=== PATIENT | female | born 1970 | race Two or more races ===

== ENCOUNTER 2016-08-22 17:36 | Observation (INO) | payer BC ==
[2016-08-22] MEDS ORDERED: ASPIRIN 81 MG CHEW PO STA (18:43)
[2016-08-22] MEDS ORDERED: NITROGLYCERIN OINT 1 INCH/GM PACKET TOPICAL STA (18:43)
--- NOTE | 2016-08-22 18:46 | ED ---
General Adult HPI - General Source: patient, EMS, RN notes reviewed Mode of arrival: EMS Limitations: no limitations <Larry Chang - Last Filed: 08/22/16 18:58> <Amandeep Rivers - Last Filed: 08/22/16 20:39> - General Chief complaint: Chest Pain Stated complaint: chest pain Time Seen by Provider: 08/22/16 18:10 - History of Present Illness Initial comments: Patient is a pleasant 46-year-old female presenting to the emergency department complaining of chest discomfort. Onset of symptoms was around 4 or 4:30. Symptoms lasted around 25 minutes. Patient was driving. Patient had pressure with radiation to the jaw and back. Patient is currently symptom-free. Patient did have some associated diaphoresis and nausea. No dyspnea. No history of similar symptoms previously. (Larry Chang) - Related Data Home Medications Medication Instructions Recorded Confirmed Ascorbic Acid [Vitamin C] 500 mg PO DAILY 08/22/16 08/22/16 Cyanocobalamin [Vitamin B-12] 500 mcg PO DAILY 08/22/16 08/22/16 Fluticasone/Vilanterol [Breo 1 puff INHALATION RT-DAILY 08/22/16 08/22/16 Ellipta 100-25 Mcg Inhaler] Multivitamins, Thera [Multivitamin 1 tab PO DAILY 08/22/16 08/22/16 (formulary)] Allergies Allergy/AdvReac Type Severity Reaction Status Date / Time No Known Allergies Allergy Verified 08/22/16 18:17 Review of Systems ROS Other: All systems not noted in ROS Statement are negative. Constitutional: Denies: fever Eyes: Denies: eye pain ENT: Denies: ear pain Respiratory: Denies: cough, dyspnea Cardiovascular: Reports: chest pain Endocrine: Denies: fatigue Gastrointestinal: Denies: abdominal pain Genitourinary: Denies: dysuria Musculoskeletal: Denies: arthralgia Skin: Denies: rash Neurological: Denies: weakness <Larry Chang - Last Filed: 08/22/16 18:58> ROS Other: All systems not noted in ROS Statement are negative. <Amandeep Rivers - Last Filed: 08/22/16 20:39> ROS Statement: Those systems with pertinent positive or pertinent negative responses have been documented in the HPI. Past Medical History Past Medical History: Hyperlipidemia History of Any Multi-Drug Resistant Organisms: None Reported Past Surgical History: Cholecystectomy, Tonsillectomy, Tubal Ligation Past Psychological History: No Psychological Hx Reported Smoking Status: Current every day smoker Past Alcohol Use History: Occasional Past Drug Use History: None Reported <Larry Chang - Last Filed: 08/22/16 18:58> General Exam Limitations: no limitations General appearance: alert, in no apparent distress Head exam: Present: atraumatic Eye exam: Present: normal appearance, PERRL ENT exam: Present: normal oropharynx Neck exam: Present: normal inspection Respiratory exam: Present: normal lung sounds bilaterally. Absent: chest wall tenderness Cardiovascular Exam: Present: regular rate, normal rhythm Expanded Peripheral pulses: 2+: Radial (R), Radial (L), Posterior Tibialis (R), Posterior Tibialis (L) GI/Abdominal exam: Present: soft. Absent: tenderness Extremities exam: Present: normal inspection. Absent: pedal edema, calf tenderness Neurological exam: Present: alert Psychiatric exam: Present: normal affect, normal mood Skin exam: Absent: rash <Larry Chang - Last Filed: 08/22/16 18:58> EKG Findings - EKG Comments: EKG Findings:: Normal sinus rhythm at 82. Normal intervals. Normal axis. Normal QRS. Normal ST-T. <Larry Chang - Last Filed: 08/22/16 18:58> Medical Decision Making - Lab Data Result diagrams: 08/22/16 17:48 <Larry Chang - Last Filed: 08/22/16 18:58> - Lab Data Result diagrams: 08/22/16 17:48 08/22/16 17:48 <Amandeep Rivers - Last Filed: 08/22/16 20:39> - Medical Decision Making Case endorsed to Dr. Whitney pending lab and x-ray results. Case was discussed with practitioner Leon, covering with Dr. Zamora, covering for Dr. gamino who admits for Dr. Gandhi. She will admit if deemed necessary. (Larry Chang) I received this patient as a sign out pending the lab studies. I went and reviewed the patient, including history, physical and studies. The patient remains symptom-free. I discussed results with the patient and wrote the admission orders. (Amandeep Rivers) - Lab Data Lab Results 03/31/17 03/31/17 03/31/17 Range/Units 17:48 17:48 17:48 WBC 11.4 H (3.8-10.6) k/uL RBC 4.69 (3.80-5.40) m/uL Hgb 14.2 (11.4-16.0) gm/dL Hct 43.2 (34.0-46.0) % MCV 92.1 (80.0-100.0) fL MCH 30.2 (25.0-35.0) pg MCHC 32.8 (31.0-37.0) g/dL RDW 13.4 (11.5-15.5) % Plt Count 286 (150-450) k/uL Neutrophils % 57 % Lymphocytes % 32 % Monocytes % 4 % Eosinophils % 4 % Basophils % 1 % Neutrophils # 6.5 (1.3-7.7) k/uL Lymphocytes # 3.6 (1.0-4.8) k/uL Monocytes # 0.5 (0-1.0) k/uL Eosinophils # 0.4 (0-0.7) k/uL Basophils # 0.1 (0-0.2) k/uL PT 10.3 (9.0-12.0) sec INR 1.0 (<1.1) APTT 27.3 (22.0-30.0) sec D-Dimer 0.27 (<0.60) mg/L FEU Sodium (137-145) mmol/L Potassium (3.5-5.1) mmol/L Chloride (98-107) mmol/L Carbon Dioxide (22-30) mmol/L Anion Gap mmol/L BUN (7-17) mg/dL Creatinine (0.52-1.04) mg/dL Est GFR (MDRD) Af Amer (>60 ml/min/1.73 sqM) Est GFR (MDRD) Non-Af (>60 ml/min/1.73 sqM) Glucose (74-99) mg/dL Calcium (8.4-10.2) mg/dL Magnesium (1.6-2.3) mg/dL Total Bilirubin (0.2-1.3) mg/dL AST (14-36) U/L ALT (9-52) U/L Alkaline Phosphatase (38-126) U/L Total Creatine Kinase 49 (30-135) U/L CK-MB (CK-2) <0.2 (0.0-2.4) ng/mL CK-MB (CK-2) Rel Index Troponin I <0.012 (0.000-0.034) ng/mL Total Protein (6.3-8.2) g/dL Albumin (3.5-5.0) g/dL 08/22/16 Range/Units 17:48 WBC (3.8-10.6) k/uL RBC (3.80-5.40) m/uL Hgb (11.4-16.0) gm/dL Hct (34.0-46.0) % MCV (80.0-100.0) fL MCH (25.0-35.0) pg MCHC (31.0-37.0) g/dL RDW (11.5-15.5) % Plt Count (150-450) k/uL Neutrophils % % Lymphocytes % % Monocytes % % Eosinophils % % Basophils % % Neutrophils # (1.3-7.7) k/uL Lymphocytes # (1.0-4.8) k/uL Monocytes # (0-1.0) k/uL Eosinophils # (0-0.7) k/uL Basophils # (0-0.2) k/uL PT (9.0-12.0) sec INR (<1.1) APTT (22.0-30.0) sec D-Dimer (<0.60) mg/L FEU Sodium 141 (137-145) mmol/L Potassium 4.3 (3.5-5.1) mmol/L Chloride 105 (98-107) mmol/L Carbon Dioxide 25 (22-30) mmol/L Anion Gap 11 mmol/L BUN 16 (7-17) mg/dL Creatinine 0.60 (0.52-1.04) mg/dL Est GFR (MDRD) Af Amer >60 (>60 ml/min/1.73 sqM) Est GFR (MDRD) Non-Af >60 (>60 ml/min/1.73 sqM) Glucose 99 (74-99) mg/dL Calcium 9.8 (8.4-10.2) mg/dL Magnesium 1.9 (1.6-2.3) mg/dL Total Bilirubin 0.6 (0.2-1.3) mg/dL AST 24 (14-36) U/L ALT 27 (9-52) U/L Alkaline Phosphatase 103 (38-126) U/L Total Creatine Kinase (30-135) U/L CK-MB (CK-2) (0.0-2.4) ng/mL CK-MB (CK-2) Rel Index Troponin I (0.000-0.034) ng/mL Total Protein 7.9 (6.3-8.2) g/dL Albumin 4.6 (3.5-5.0) g/dL Disposition <Larry Chang - Last Filed: 08/22/16 18:58> <Amandeep Rivers - Last Filed: 08/22/16 20:39> Clinical Impression: Chest pain Disposition: ADMITTED IP TO THIS HOSP Condition: Good Referrals: Marvin Gandhi DO [Primary Care Provider] - 1-2 days
[2016-08-22 18:55] LABS: Basophils # (A) 0.1 k/uL (0-0.2); Basophils % (A) 1 %; CH 30.4; CHCM 33.2; Eosinophils # (A) 0.4 k/uL (0-0.7); Eosinophils % (A) 4 %; HCT 43.2 % (34.0-46.0); HDW 2.38; HGB 14.2 gm/dL (11.4-16.0); Luc # (Auto) 0.33; Luc % (Auto) 3; Lymphocytes # (A) 3.6 k/uL (1.0-4.8); Lymphocytes % (A) 32 %; MCH 30.2 pg (25.0-35.0); MCHC 32.8 g/dL (31.0-37.0); MCV 92.1 fL (80.0-100.0); Mean Platelet Volume 8.1; Monocytes # (A) 0.5 k/uL (0-1.0); Monocytes % (A) 4 %; Neutrophils # (A) 6.5 k/uL (1.3-7.7); Neutrophils % (A) 57 %; RBC 4.69 m/uL (3.80-5.40); RDW 13.4 % (11.5-15.5); WBC 11.4 k/uL (3.8-10.6); WBC (Perox) 11.54
[2016-08-22 19:03] LABS: ALT 27 U/L (9-52); AST 24 U/L (14-36); Alkaline Phosphatase 103 U/L (38-126); Anion Gap 11 mmol/L; Blood Urea Nitrogen 16 mg/dL (7-17); Calcium 9.8 mg/dL (8.4-10.2); Carbon Dioxide 25 mmol/L (22-30); Chloride 105 mmol/L (98-107); Glucose 99 mg/dL (74-99); Magnesium 1.9 mg/dL (1.6-2.3); Non-African American GFR(MDRD) >60 (>60 ml/min/1.73 sqM); Potassium 4.3 mmol/L (3.5-5.1); Sodium 141 mmol/L (137-145); Total Bilirubin 0.6 mg/dL (0.2-1.3); Total Protein 7.9 g/dL (6.3-8.2)
[2016-08-22 19:10] LABS: Partial Thromboplastin Time 27.3 sec (22.0-30.0); Prothrombin Time 10.3 sec (9.0-12.0)
[2016-08-22 19:18] LABS: Creatine Kinase 49 U/L (30-135)
[2016-08-22 19:31] LABS: Creatine Kinase MB <0.2 ng/mL (0.0-2.4); Troponin I <0.012 ng/mL (0.000-0.034)
--- NOTE | 2016-08-22 19:43 | XR ---
EXAMINATION TYPE: XR chest 2V DATE OF EXAM: 08/22/2016 7:11 PM COMPARISON: NONE HISTORY: Pain with nausea TECHNIQUE: Frontal and lateral views of the chest are obtained. FINDINGS: There is no focal air space opacity, pleural effusion, or pneumothorax seen. The cardiac silhouette size is within normal limits. The osseous structures are intact. IMPRESSION: No acute cardiopulmonary process.
[2016-08-22] MEDS ORDERED: NITROGLYCERIN SL TABS 0.4 MG TAB SUBLINGUAL PRN (20:35)
[2016-08-22 21:25] VITALS: RESP 18
[2016-08-22 21:33] VITALS: BMI 26.6
[2016-08-22] MEDS ORDERED: INFLUENZA VACCINE (3YR+) 60 MCG/0.5 ML SYRINGE IM ONE (21:53)
[2016-08-23 00:53] LABS: Creatine Kinase 39 U/L (30-135)
[2016-08-23 01:06] LABS: Creatine Kinase MB <0.2 ng/mL (0.0-2.4); Troponin I <0.012 ng/mL (0.000-0.034)
[2016-08-23] MEDS: ACETAMINOPHEN TAB 325 MG TAB PO PRN ×2 (04:05→15:56)
[2016-08-23 05:49] LABS: Cholesterol 277 mg/dL (<200); HDL Cholesterol 41 mg/dL (40-60); Triglycerides 276 mg/dL (<150)
[2016-08-23 05:53] LABS: Creatine Kinase 47 U/L (30-135)
[2016-08-23 06:05] LABS: Creatine Kinase MB <0.2 ng/mL (0.0-2.4); Troponin I <0.012 ng/mL (0.000-0.034)
[2016-08-23] MEDS ORDERED: ATORVASTATIN 40 MG TAB PO SCH (09:00)
[2016-08-23] MEDS ORDERED: ASPIRIN 325 MG TAB PO SCH (09:00)
--- NOTE | 2016-08-23 09:30 | CONS ---
DATE OF CONSULTATION: Mrs. Moody is a 46-year-old female with known history of chronic tobacco use and a history of hyperlipidemia who presented with symptoms of chest discomfort. 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 She felt short of breath and diaphoretic with it. At time of my evaluation, she is pain free. Patient is not very active physically. Denies any exertional chest pain. Denies any prior history of cardiac disease. She has some dyspnea on exertion and cough related to her smoking. She has no PND or orthopnea. No peripheral edema. No dizziness. No syncope and no arrhythmia. Her coronary risk factors are remarkable for the chronic tobacco use about a pack a day. The hyperlipidemia is ( ) treated. She is nondiabetic. No hypertension. Her medications at home including Breo Ellipta, vitamin C, vitamin B and multivitamin. REVIEW OF SYSTEMS: RESPIRATORY SYSTEM: She has cough, dyspnea on exertion and early COPD according to her. GI SYSTEM: No recent GI bleed. No peptic ulcer disease. SYSTEM: No dysuria or hematuria. NERVOUS SYSTEM: No stroke or seizure. PHYSICAL EXAMINATION: A 46-year-old female, alert, oriented in no apparent distress. blood pressure 115/60 with the heart rate in the 80s. HEAD: Normocephalic. EYES: Sclerae nonicteric. NECK: Good carotid upstroke. No bruit. No jugular venous distention. LUNGS: Clear to auscultation. HEART: Regular rate and rhythm, S1, S2, no S3, no rub. ABDOMEN: Soft, nontender. Positive bowel sounds. No organomegaly. EXTREMITIES: No edema. Intact distal pulses. EKG revealed sinus mechanism, normal axis and interval with no acute changes. Chest x-ray revealed no acute infiltrate. IMPRESSION: 1. Chest discomfort of unclear etiology. Has some atypical feature for ischemic heart disease in a patient with history of chronic tobacco use and hyperlipidemia. 2. Chronic tobacco use. 3. Hyperlipidemia, untreated. RECOMMENDATIONS: Her lab data has revealed a troponin of less than 0.012 for 3 samples. Her cholesterol is 277 with an LDL of 181. I will initiate treatment with a statin. I will obtain an echocardiogram with Doppler. If there is no evidence of segmental wall motion abnormality then the patient should be able to be discharged home today and followed as an outpatient to undergo a stress echocardiogram . Thank you for this consult. We will follow with you.
[2016-08-23 16:40] VITALS: BP 112/60; PULSE 85; TEMP 97.8
--- NOTE | 2016-08-23 17:35 | P.HPIM ---
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 Patient stated that this is a first and symptoms of her chest pain. Pain was pressure-like and description radiation was described above no alleviating or exacerbating factors. Patient states that the pain lasts less than hour and was self-limiting. Emergency room EKG did not reveal ST-T wave changes. Chest x-ray was also negative. Cardiac enzymes 3 were negative. Patient has having any PND, orthopnea, headaches, blurry vision, chest pain, difficulty breathing, nausea, vomiting, urinary urgency or frequency, change in bowel habits. At the time of my evaluation patient is symptom-free. Review of Systems All systems: negative (Noted in HPI) Past Medical History Past Medical History: Asthma, COPD, Hyperlipidemia, Pneumonia Additional Past Medical History / Comment(s): Bronchitis History of Any Multi-Drug Resistant Organisms: None Reported Past Surgical History: Cholecystectomy, Tonsillectomy, Tubal Ligation Past Anesthesia/Blood Transfusion Reactions: No Reported Reaction Past Psychological History: No Psychological Hx Reported Smoking Status: Current every day smoker Past Alcohol Use History: Occasional Past Drug Use History: None Reported - Past Family History Father Family Medical History: Hypertension Mother Family Medical History: Cancer Additional Family Medical History / Comment(s): Lung Medications and Allergies Home Medications Medication Instructions Recorded Confirmed Type Ascorbic Acid [Vitamin C] 500 mg PO DAILY 08/22/16 08/22/16 History Cyanocobalamin [Vitamin B-12] 500 mcg PO DAILY 08/22/16 08/22/16 History Fluticasone/Vilanterol [Breo 1 puff INHALATION RT-DAILY 08/22/16 08/22/16 History Ellipta 100-25 Mcg Inhaler] Multivitamins, Thera [Multivitamin 1 tab PO DAILY 08/22/16 08/22/16 History (formulary)] Allergies Allergy/AdvReac Type Severity Reaction Status Date / Time No Known Allergies Allergy Verified 08/22/16 21:22 Physical Exam Vitals: Vital Signs Temp Pulse Resp BP BP Pulse Ox 08/23/16 16:00 97.8 F 85 18 112/60 94 L 08/23/16 11:45 97.9 F 67 18 114/61 93 L 08/23/16 07:47 97.9 F 86 18 115/62 93 L 08/23/16 04:00 84 18 08/23/16 03:50 98.1 F 84 18 134/67 97 08/22/16 23:48 84 18 118/74 95 08/22/16 23:02 88 18 08/22/16 21:48 18 08/22/16 21:25 97.6 F 82 18 142/76 97 Intake and Output 08/23/16 08/23/16 08/23/16 06:59 14:59 22:59 Intake Total 100 420 Balance 100 420 Intake: Oral 100 420 Other: Voiding Method Toilet # Voids 2 Physical exam Gen. appearance oriented 3 in no distress Neck is supple no JVD Lungs good air entry clear to auscultation no rhonchi or wheezing Heart S1-S2 heard regular rate and rhythm no murmurs appreciated Abdomen is soft nontender no organomegaly bowel sounds are intact Neurologically cranial nerves II-12 grossly intact no focal motor or sensory deficits noted Skin no abnormalities appreciated Results CBC & Chem 7: 08/22/16 17:48 08/22/16 17:48 Labs: Abnormal Lab Results - Last 24 Hours (Table) 08/23/16 Range/Units 05:22 Triglycerides 276 H (<150) mg/dL Cholesterol 277 H (<200) mg/dL LDL Cholesterol, Calc 181 H (0-99) mg/dL Thrombosis Risk Factor Assmnt - Choose All That Apply Each Factor Represents 1 point: Age 41-60 years, Obesity (BMI >25) Thrombosis Risk Factor Assessment Total Risk Factor Score: 2 Thrombosis Risk Factor Assessment Level: Low Risk Assessment and Plan Plan: #1 atypical chest pain, ACS is ruled out. #2 COPD currently stable #3 dyslipidemia #4 ongoing tobacco use Plan ACS is ruled out. Await echocardiogram results and there is no wall motion abnormalities patient can be discharged home. Did discuss smoking cessation. Continue current medications at home. Blood pressures were stable during the Hospitilization Cardiac enzymes were negative.
--- NOTE | 2016-08-23 18:08 | ECHOF ---
Referral Reason: MEASUREMENTS -------- HEIGHT: 162.6 cm WEIGHT: 70.3 kg BP: 115/62 RVIDd: 2.6 cm (< 3.3) IVSd: 0.8 cm (0.6 - 1.1) LVIDd: 3.4 cm (3.9 - 5.3) LVPWd: 0.9 cm (0.6 - 1.1) IVSs: 0.8 cm LVIDs: 3.3 cm LVPWs: 0.7 cm LA Diam: 2.4 cm (2.7 - 3.8) Ao Diam: 2.9 cm (2.0 - 3.7) AV Cusp: 1.7 cm (1.5 - 2.6) LA Diam: 3.2 cm (2.7 - 3.8) MV EXCURSION: 14.967 mm (> 18.000) MV EF SLOPE: 121 mm/s (70 - 150) EPSS: 0.8 cm MV E Valdez: 0.86 m/s MV DecT: 163 ms MV A Valdez: 0.58 m/s MV E/A Ratio: 1.48 RAP: 5.00 mmHg RVSP: 12.14 mmHg FINDINGS -------- Sinus rhythm. This was a technically adequate study. LV size, wall thickness and systolic function are normal, with an EF greater than 55%. The right ventricle is normal in size. Normal LA size by volume 22+/-6 ml/m2. The right atrial size is normal. The aortic valve is trileaflet, and appears structurally normal. No aortic stenosis or regurgitation. The mitral valve is normal. There is trace mitral regurgitation. Mild tricuspid regurgitation present. There is no evidence of pulmonary hypertension. The right ventricular systolic pressure, as measured by Doppler, is 12.14mmHg. There is no pulmonic regurgitation present. The aortic root size is normal. There is no pericardial effusion. CONCLUSIONS -------- 1. Sinus rhythm. 2. There is no pericardial effusion. 3. This was a technically adequate study. 4. LV size, wall thickness and systolic function are normal, with an EF greater than 55%. 5. Normal LA size by volume 22+/-6 ml/m2. 6. The aortic valve is trileaflet, and appears structurally normal. No aortic stenosis or regurgitation. 7. There is trace mitral regurgitation. 8. Mild tricuspid regurgitation present. 9. There is no evidence of pulmonary hypertension. 10. There is no pulmonic regurgitation present. HELPER COORDINATOR: Kailee Castaneda RDCS
== END 2016-08-23 18:10 | disposition home or self-care (01) ==
LOC: EC 17:36 → 3OBS 20:37
PROVIDERS: ADMIT Hospitalist; ATTEND Hospitalist
DX: R07.89 Other chest pain (principal); Z79.2 Long term (current) use of antibiotics; Z79.51 Long term (current) use of inhaled steroids; Z79.899 Other long term (current) drug therapy; F17.200 Nicotine dependence, unspecified, uncomplicated; J45.909 Unspecified asthma, uncomplicated; J44.9 Chronic obstructive pulmonary disease, unspecified; E78.5 Hyperlipidemia, unspecified; Z90.49 Acquired absence of other specified parts of digestive tract; Z82.49 Family history of ischemic heart disease and other diseases of the circulatory system; Z80.1 Family history of malignant neoplasm of trachea, bronchus and lung
CPT/HCPCS: 99285 ×2; 36415; 93005; 93306; 85379; 80061; 80053; 82550 ×2; 82553 ×2; 83735; 84484 ×2; 85025; 85610; 85730; 71020; G0378 ×2

== ENCOUNTER → 2016-09-04 | Outpatient (CLI) | payer BC ==
--- NOTE | 2016-09-04 11:57 | EST ---
DATE OF SERVICE: 09/04/2016 AGE: 46Y SEX: F HT: 64 WT: 157 lbs. Protocol Logan: X Other: Stage: II Dur. of Exercise: 8 minutes *Heart Rate Blood Pressure *Rest: 92 Rest: 116/79 * *Max. Achieved: 168 Maximum BP: 155/76 85% PMHR: 146 100% PMHR: 172 *METS: 9.5 INDICATIONS: Chest pain. MEDICATIONS: Patient was exercised for a total period of 8 minutes. The peak heart rate of 168 was achieved. Maximum blood pressure of 155/76 mmHg was noted. Resting EKG shows normal sinus rhythm with normal AL interval and QRS duration and normal ST-T waves. No ST segment depression suggestive of ischemia is noted. The patient did not complain of any chest pain during the test. FINAL IMPRESSION: 1. This exercise test is not suggestive of ischemia. 2. Patient's exercise tolerance is normal. 3. Patient did not complain of any anginal pain during the test.
== END ==
LOC: RADNMMAIN 10:47
PROVIDERS: ATTEND Family Medicine
DX: R07.9 Chest pain, unspecified (principal)
CPT/HCPCS: 93017

== ENCOUNTER → 2016-09-24 | Outpatient (CLI) | payer BC ==
--- NOTE | 2016-09-25 11:34 | MM ---
Reason for exam: screening (asymptomatic). Last mammogram was performed 4 years and 1 month ago. History: Took hormonal contraceptives for 3 years. Physical Findings: A clinical breast exam by your physician is recommended on an annual basis and results should be correlated with mammographic findings. MG Screening Mammo w CAD Bilateral CC and MLO view(s) were taken. Prior study comparison: August 23, 2012, bilateral digital screening mammo w/CAD. August 16, 2010, bilateral digital screening mammo w/CAD. There are scattered fibroglandular densities. There is no discrete abnormality. No significant changes when compared with prior studies. ASSESSMENT: Negative, BI-RAD 1 RECOMMENDATION: Routine screening mammogram of both breasts in 1 year.
== END ==
LOC: RADMAMWWP 10:38
PROVIDERS: ATTEND Family Medicine
DX: Z12.31 Encounter for screening mammogram for malignant neoplasm of breast (principal)

== ENCOUNTER → 2017-10-20 | Outpatient (CLI) | payer BC ==
--- NOTE | 2017-10-20 11:42 | XR ---
EXAMINATION TYPE: XR chest 2V DATE OF EXAM: 10/20/2017 COMPARISON: Chest x-ray March 26, 2017 HISTORY: Chest and back pain. TECHNIQUE: Frontal and lateral views of the chest are obtained. FINDINGS: There is no focal air space opacity, pleural effusion, or pneumothorax seen. The cardiac silhouette size is within normal limits. The osseous structures are intact. Cholecystectomy clips a re redemonstrated on lateral view. IMPRESSION: No acute cardiopulmonary process. No significant change from prior.
--- NOTE | 2017-10-20 11:43 | XR ---
EXAMINATION TYPE: XR thoracic spine complete DATE OF EXAM: 10/20/2017 CLINICAL HISTORY: Mid back pain for 2 weeks. TECHNIQUE: Frontal, lateral, and swimmer's view of thoracic spine are obtained. COMPARISON: Prior chest x-ray March 26, 2017. FINDINGS: Thoracic spine show satisfactory alignment without evidence of acute fracture or dislocatio n. Vertebral body heights and disc space heights are preserved. Visualized ribs are unremarkable. Cholecystectomy clips are incidentally noted. IMPRESSION: Unremarkable study.
== END | disposition home or self-care (01) ==
LOC: RADXRMAIN 10:52
PROVIDERS: ATTEND Physician Assistant
DX: M54.6 Pain in thoracic spine (principal)
CPT/HCPCS: 71046; 72072

== ENCOUNTER → 2018-09-10 | Outpatient (CLI) | payer BC ==
--- NOTE | 2018-09-14 09:23 | MM ---
Reason for exam: screening (asymptomatic). Last mammogram was performed 2 years ago. History: Took hormonal contraceptives for 3 years. Physical Findings: A clinical breast exam by your physician is recommended on an annual basis and results should be correlated with mammographic findings. MG Screening Mammo w CAD Bilateral CC and MLO view(s) were taken. XCCL view(s) were taken of the left breast. Prior study comparison: September 24, 2016, bilateral MG screening mammo w CAD. August 23, 2012, bilateral digital screening mammo w/CAD. There are scattered fibroglandular densities. There is no discrete abnormality. No significant changes when compared with prior studies. ASSESSMENT: Negative, BI-RAD 1 RECOMMENDATION: Routine screening mammogram of both breasts in 1 year.
== END ==
LOC: RADMAMWWP 09:54
PROVIDERS: ATTEND Family Medicine
DX: Z12.31 Encounter for screening mammogram for malignant neoplasm of breast (principal)
CPT/HCPCS: 77067

== ENCOUNTER 2018-11-09 09:35 | Observation (INO) | payer BC ==
--- NOTE | 2018-11-09 10:21 | ED ---
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 States it was midsternal radiating to the back and to the jaw 9-10/10 severity with associated nausea. She states it was sharp and pressure-like. She took 2 full strength aspirin at the time and now she states the pain is 0/10 she states she has been worked up in the past for this about 2 years ago no cardiac cath was performed with the other testing was apparently within normal limits. Patient is currently diagnosed with high cholesterol COPD she does have a chronic cough and she does still smoke. No other modifying factors at this time MD Complaint: chest pain - Related Data Home Medications Medication Instructions Recorded Confirmed Atorvastatin [Lipitor] 80 mg PO HS 11/09/18 11/09/18 Lisinopril [Zestril] 2.5 mg PO DAILY 11/09/18 11/09/18 Allergies Allergy/AdvReac Type Severity Reaction Status Date / Time No Known Allergies Allergy Verified 11/09/18 09:58 Review of Systems ROS Statement: Those systems with pertinent positive or pertinent negative responses have been documented in the HPI. ROS Other: All systems not noted in ROS Statement are negative. EKG Findings - EKG Results: EKG: interpreted by PRICILLA, sinus rhythm (Sinus rhythm of 85. Interval 144 QRS duration 76 QT since QTC 362/4:30 she T-wave changes) Past Medical History Past Medical History: Asthma, COPD, Hyperlipidemia, Pneumonia Additional Past Medical History / Comment(s): Bronchitis History of Any Multi-Drug Resistant Organisms: None Reported Past Surgical History: Cholecystectomy, Tonsillectomy, Tubal Ligation Past Anesthesia/Blood Transfusion Reactions: No Reported Reaction Past Psychological History: No Psychological Hx Reported Smoking Status: Current every day smoker Past Alcohol Use History: Occasional Past Drug Use History: None Reported - Past Family History Father Family Medical History: Hypertension Mother Family Medical History: Cancer Additional Family Medical History / Comment(s): Lung General Exam - General Exam Comments Initial Comments: This is a well-developed well-nourished awake alert oriented 3 female Limitations: no limitations General appearance: alert, in no apparent distress Head exam: Present: atraumatic, normocephalic, normal inspection Eye exam: Present: normal appearance, PERRL, EOMI. Absent: scleral icterus, conjunctival injection, periorbital swelling ENT exam: Present: normal exam, mucous membranes moist Neck exam: Present: normal inspection, full ROM, other (No stridor JVD or bruits). Absent: tenderness, meningismus, lymphadenopathy Respiratory exam: Present: normal lung sounds bilaterally. Absent: respiratory distress, wheezes, rales, rhonchi, stridor Cardiovascular Exam: Present: regular rate, normal rhythm, normal heart sounds. Absent: systolic murmur, diastolic murmur, rubs, gallop, clicks GI/Abdominal exam: Present: soft, normal bowel sounds. Absent: distended, tenderness, guarding, rebound, rigid Extremities exam: Present: normal inspection, full ROM, normal capillary refill. Absent: tenderness, pedal edema, joint swelling, calf tenderness Back exam: Present: normal inspection Neurological exam: Present: alert, oriented X3, CN II-XII intact Psychiatric exam: Present: normal affect, normal mood Skin exam: Present: warm, dry, intact, normal color. Absent: rash Course Vital Signs 11/09/18 09:39 Temperature 98.5 F Pulse Rate 90 Respiratory 18 Rate Blood Pressure 156/98 O2 Sat by Pulse 97 Oximetry - Reevaluation(s) Reevaluation #1: 11/09/18 11:30 Reevaluation patient reveals no further pain at this time. Chest Pain MDM - MDM I did review the imaging and report no acute findings. Patient still has had no further chest pain but the symptoms are consistent with unstable angina patient be admitted for evaluation and case is discussed with Dr. Resendez Disposition Clinical Impression: Unstable angina pectoris, Chest pain Disposition: ADMITTED IP TO THIS HOSP Condition: Stable Referrals: Masha Phipps DO [Primary Care Provider] - 1-2 days
[2018-11-09 10:30] LABS: Basophils % (A) 0 %; Eosinophils # (A) 0.4 k/uL (0-0.7); Eosinophils % (A) 4 %; HCT 43.6 % (34.0-46.0); HGB 14.1 gm/dL (11.4-16.0); Lymphocytes # (A) 3.7 k/uL (1.0-4.8); Lymphocytes % (A) 34 %; MCH 29.3 pg (25.0-35.0); MCHC 32.3 g/dL (31.0-37.0); MCV 90.8 fL (80.0-100.0); Mean Platelet Volume 8.1; Monocytes # (A) 0.4 k/uL (0-1.0); Monocytes % (A) 4 %; Neutrophils % (A) 56 %; Platelet Count 269 k/uL (150-450); RDW 14.7 % (11.5-15.5); WBC 10.8 k/uL (3.8-10.6)
--- NOTE | 2018-11-09 10:36 | XR ---
EXAMINATION TYPE: XR chest 2V DATE OF EXAM: 11/09/2018 COMPARISON: Chest x-ray 10/20/2017 HISTORY: Chest pain TECHNIQUE: Frontal and lateral views of the chest are obtained. FINDINGS: There is no focal air space opacity, pleural effusion, or pneumothorax seen. The cardiac silhouette size is within normal limits. The osseous structures are intact. Surgical clips present in the upper abdomen. IMPRESSION: No acute cardiopulmonary process.
[2018-11-09 10:44] LABS: ALT 37 U/L (9-52); AST 37 U/L (14-36); African American GFR (CKD) >90 (>60 ml/min/1.73 sqM); Albumin 4.7 g/dL (3.5-5.0); Alkaline Phosphatase 127 U/L (38-126); Anion Gap 11 mmol/L; Blood Urea Nitrogen 15 mg/dL (7-17); Calcium 9.7 mg/dL (8.4-10.2); Carbon Dioxide 20 mmol/L (22-30); Chloride 107 mmol/L (98-107); Creatine Kinase 60 U/L (30-135); Glucose 125 mg/dL (74-99); Lipase 65 U/L (23-300); Magnesium 1.9 mg/dL (1.6-2.3); Sodium 138 mmol/L (137-145); Total Bilirubin 0.6 mg/dL (0.2-1.3); Total Protein 8.4 g/dL (6.3-8.2)
[2018-11-09 10:57] LABS: D-Dimer 0.2 mg/L FEU (<0.60); INR 0.8 (<1.2); Prothrombin Time 9.4 sec (9.0-12.0)
[2018-11-09 11:01] LABS: Potassium 4.9 mmol/L (3.5-5.1)
[2018-11-09] MEDS ORDERED: NITROGLYCERIN SL TABS 0.4 MG TAB SUBLINGUAL PRN (11:34)
[2018-11-09] MEDS ORDERED: HEPARIN SODIUM,PORCINE 5,000 UNIT/ML 1 ML VIAL IV ONE (11:34)
[2018-11-09] MEDS ORDERED: NICOTINE 21MG/24HR PATCH TRANSDERM STA (11:36)
--- NOTE | 2018-11-09 11:37 | ED ---
Medical Decision Making - Lab Data Result diagrams: 11/09/18 10:09 11/09/18 10:09 Lab Results 11/09/18 11/09/18 11/09/18 Range/Units 10:09 10:09 10:09 WBC 10.8 H (3.8-10.6) k/uL RBC 4.80 (3.80-5.40) m/uL Hgb 14.1 (11.4-16.0) gm/dL Hct 43.6 (34.0-46.0) % MCV 90.8 (80.0-100.0) fL MCH 29.3 (25.0-35.0) pg MCHC 32.3 (31.0-37.0) g/dL RDW 14.7 (11.5-15.5) % Plt Count 269 (150-450) k/uL Neutrophils % 56 % Lymphocytes % 34 % Monocytes % 4 % Eosinophils % 4 % Basophils % 0 % Neutrophils # 6.0 (1.3-7.7) k/uL Lymphocytes # 3.7 (1.0-4.8) k/uL Monocytes # 0.4 (0-1.0) k/uL Eosinophils # 0.4 (0-0.7) k/uL Basophils # 0.0 (0-0.2) k/uL PT 9.4 (9.0-12.0) sec INR 0.8 (<1.2) APTT 20.0 L (22.0-30.0) sec D-Dimer 0.20 (<0.60) mg/L FEU Sodium 138 (137-145) mmol/L Potassium 4.9 (3.5-5.1) mmol/L Chloride 107 (98-107) mmol/L Carbon Dioxide 20 L (22-30) mmol/L Anion Gap 11 mmol/L BUN 15 (7-17) mg/dL Creatinine 0.50 L (0.52-1.04) mg/dL Est GFR (CKD-EPI)AfAm >90 (>60 ml/min/1.73 sqM) Est GFR (CKD-EPI)NonAf >90 (>60 ml/min/1.73 sqM) Glucose 125 H (74-99) mg/dL Calcium 9.7 (8.4-10.2) mg/dL Magnesium 1.9 (1.6-2.3) mg/dL Total Bilirubin 0.6 (0.2-1.3) mg/dL AST 37 H (14-36) U/L ALT 37 (9-52) U/L Alkaline Phosphatase 127 H (38-126) U/L Creatine Kinase 60 (30-135) U/L Troponin I (0.000-0.034) ng/mL NT-Pro-B Natriuret Pep pg/mL Total Protein 8.4 H (6.3-8.2) g/dL Albumin 4.7 (3.5-5.0) g/dL Lipase 65 (23-300) U/L 11/09/18 11/09/18 Range/Units 10:09 10:09 WBC (3.8-10.6) k/uL RBC (3.80-5.40) m/uL Hgb (11.4-16.0) gm/dL Hct (34.0-46.0) % MCV (80.0-100.0) fL MCH (25.0-35.0) pg MCHC (31.0-37.0) g/dL RDW (11.5-15.5) % Plt Count (150-450) k/uL Neutrophils % % Lymphocytes % % Monocytes % % Eosinophils % % Basophils % % Neutrophils # (1.3-7.7) k/uL Lymphocytes # (1.0-4.8) k/uL Monocytes # (0-1.0) k/uL Eosinophils # (0-0.7) k/uL Basophils # (0-0.2) k/uL PT (9.0-12.0) sec INR (<1.2) APTT (22.0-30.0) sec D-Dimer (<0.60) mg/L FEU Sodium (137-145) mmol/L Potassium (3.5-5.1) mmol/L Chloride (98-107) mmol/L Carbon Dioxide (22-30) mmol/L Anion Gap mmol/L BUN (7-17) mg/dL Creatinine (0.52-1.04) mg/dL Est GFR (CKD-EPI)AfAm (>60 ml/min/1.73 sqM) Est GFR (CKD-EPI)NonAf (>60 ml/min/1.73 sqM) Glucose (74-99) mg/dL Calcium (8.4-10.2) mg/dL Magnesium (1.6-2.3) mg/dL Total Bilirubin (0.2-1.3) mg/dL AST (14-36) U/L ALT (9-52) U/L Alkaline Phosphatase (38-126) U/L Creatine Kinase (30-135) U/L Troponin I <0.012 (0.000-0.034) ng/mL NT-Pro-B Natriuret Pep 13 pg/mL Total Protein (6.3-8.2) g/dL Albumin (3.5-5.0) g/dL Lipase (23-300) U/L Disposition Clinical Impression: Unstable angina pectoris, Chest pain, Smoking Disposition: ADMITTED IP TO THIS HOSP Condition: Stable Referrals: Masha Phipps DO [Primary Care Provider] - 1-2 days Procedures - Smoking Cessation Time Spent Discussing Smoking Cessation w/Patient (Minutes): 3 Patient Acknowledges Need for Cessation: Yes
[2018-11-09] MEDS ORDERED: HEPARIN SOD,PORK IN 0.45% NACL 25,000 UNIT in 0.45% NACL 1 250ML.BAG IV SCH (11:45)
--- NOTE | 2018-11-09 12:41 | P.HPIM ---
History of Present Illness H&P Date: 11/09/18 Chief Complaint: Chest pain This is a 48-year-old female, patient of [facility]. She has a known past medical history of hypertension, hyperlipidemia, nicotine dependence, borderline diabetic and COPD. Patient presents to the emergency room with complaints of chest pain. 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 The pain was in the center of her chest radiating to the back and also having jaw pain. She took to full aspirin that did help alleviate the symptoms. Afterwards she was complaining of nausea. She reports being pale as well. She denies any shortness of breath and any diaphoresis. She had similar symptoms 2 years ago and at that time it had a cardiac workup ME was ruled out stress test was negative. Patient has been admitted to the observation floor. EKG normal sinus rhythm first troponin is negative d-dimer 0.20 chest x-rays negative. White count 10.8 lipase is normal. Slight elevation of AST of 37. Patient has been placed on IV heparin and cardiology was consulted. Patient denies any fever or chills, vomiting, bowel movement changes or urinary symptoms. Review of Systems Please refer to HPI otherwise unremarkable Past Medical History Past Medical History: Asthma, COPD, Hyperlipidemia, Pneumonia Additional Past Medical History / Comment(s): Bronchitis History of Any Multi-Drug Resistant Organisms: None Reported Past Surgical History: Cholecystectomy, Tonsillectomy, Tubal Ligation Past Anesthesia/Blood Transfusion Reactions: No Reported Reaction Past Psychological History: No Psychological Hx Reported Smoking Status: Current every day smoker Past Alcohol Use History: Occasional Past Drug Use History: None Reported - Past Family History Father Family Medical History: Hypertension Mother Family Medical History: Cancer Additional Family Medical History / Comment(s): Lung Medications and Allergies Home Medications Medication Instructions Recorded Confirmed Type Atorvastatin [Lipitor] 80 mg PO HS 11/09/18 11/09/18 History Lisinopril [Zestril] 2.5 mg PO DAILY 11/09/18 11/09/18 History Allergies Allergy/AdvReac Type Severity Reaction Status Date / Time No Known Allergies Allergy Verified 11/09/18 09:58 Physical Exam Vitals: Vital Signs Temp Pulse Pulse Resp BP BP Pulse Ox 11/09/18 12:03 97.5 F L 71 16 125/82 99 11/09/18 11:50 98.0 F 76 12 136/83 98 11/09/18 11:40 74 18 136/83 97 11/09/18 11:30 69 17 136/91 98 11/09/18 11:20 74 19 136/91 97 11/09/18 11:10 77 16 136/91 96 11/09/18 11:00 76 19 142/85 96 11/09/18 10:50 77 17 142/85 97 11/09/18 10:40 74 12 142/85 97 11/09/18 10:30 143/93 11/09/18 10:20 81 16 143/93 98 11/09/18 10:10 86 16 143/93 97 11/09/18 10:00 84 15 149/88 98 11/09/18 09:55 82 18 97 11/09/18 09:39 98.5 F 90 18 156/98 97 Intake and Output 11/08/18 11/09/18 11/09/18 22:59 06:59 14:59 Other: Weight 70.307 kg Head normocephalic Neck supple Lungs clear to auscultation bilaterally no wheezing or crackles Heart regular rate and rhythm S1-S2, no rub or gallop Abdomen is soft nontender nondistended positive bowel sounds no hepatosplenomegaly Extremities no edema Neuro alert and orientated to 3 Results CBC & Chem 7: 11/09/18 10:09 11/09/18 10:09 Labs: Abnormal Lab Results - Last 24 Hours (Table) 11/09/18 11/09/18 11/09/18 Range/Units 10:09 10:09 10:09 WBC 10.8 H (3.8-10.6) k/uL APTT 20.0 L (22.0-30.0) sec Carbon Dioxide 20 L (22-30) mmol/L Creatinine 0.50 L (0.52-1.04) mg/dL Glucose 125 H (74-99) mg/dL AST 37 H (14-36) U/L Alkaline Phosphatase 127 H (38-126) U/L Total Protein 8.4 H (6.3-8.2) g/dL Assessment and Plan Assessment: 1. Chest pain: Cardiac workup in progress. First troponin is negative. Continue to monitor cardiac enzymes every 6 hours 2 more sets. EKG normal sinus rhythm. Chest x-ray negative. D-dimer 0.20. Cardiology on consult. Patient currently on IV heparin. 2. Hyperlipidemia: Continue statin. Check lipid panel. 3. Essential hypertension: Continue lisinopril 4. Borderline diabetic: Check hemoglobin A1c and Accu-Cheks every before meals and at bedtime 5. COPD: Resume patient's home inhalers. Patient's will be bringing in the home med list 6. Nicotine dependence: Discussed smoking cessation for greater than 3 minutes. Add nicotine patch GI prophylaxis Pepcid and DVT prophylaxis IV heparin Time with Patient: Greater than 30 (Greater than 50% of the total time spent in counseling and coordination of care.I performed an examination of the patient and discussed their management with the physician Cash Room Clerk. I have reviewed the Physician Cash Room Clerk's notes and agree with the documented findings and plan of care)
[2018-11-09] MEDS: NITROGLYCERIN OINT 1 INCH/GM PACKET TOPICAL SCH ×2 (13:18→19:51)
--- NOTE | 2018-11-09 13:56 | P.CRDCN ---
History of Present Illness History of present illness: This is a pleasant 48 old female past medical history significant for hypertension, dyslipidemia, asthma, COPD and chronic nicotine dependence. She denies prior history of coronary artery disease. She has seen Dr. Mcfadden in the office in 2017. We have been asked to see her in consultation secondary to chest discomfort. 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 This discomfort came on out of nowhere with no specific aggravating factor. It lasted for approximately 2-3 minutes and ultimately subsided slowly on its own. After this discomfort subsided she felt nauseated for approximately 15-20 minutes. There is no vomi ting, palpitations, shortness of breath, dizziness or diaphoresis. Since coming to the emergency department she has had no further symptoms of chest discomfort. She is seen and examined resting comfortably in bed in no acute distress. She underwent echocardiogram and exercise stress test in 2017 revealing preserved LV systolic function with ejection fraction 55% and no evidence of stress-induced ischemia on EKG. EKG obtained on this admission reveals sinus mechanism with no acute ST or T wav e abnormalities noted. Chest x-ray is negative for an acute cardiopulmonary process. Laboratory data reviewed, WBC 10.8, hemoglobin 14.1, d-dimer 0.2, sodium 138, potassium 4.9, creatinine 0.5, magnesium 1.9, cardiac enzymes negative 1, alkaline phosphate 127, NT proBNP 13. Current cardiac medications include lisinopril 2.5 mg daily and atorvastatin 80 mg daily. At the time of my exam: CONSTITUTIONAL: Denies fever. Denies chills. EYES: Denies blurred vision. Denies vision changes. Denies eye pain. EARS, NOSE, MOUTH & THROAT: Denies headache. Denies sore throat. Denies ear pain. CARDIOVASCULAR: Denies chest pain. Denies shortness of breath. Denies orthopnea. Denies PND. Denies palpitations. RESPIRATORY: Denies cough. GASTROINTESTINAL: Denies abdominal pain. Denies diarrhea. Denies constipation. Denies nausea. Denies vomiting. MUSCULOSKELETAL: Denies myalgias. INTEGUMENTARY: Denies pruitis. Denies rash. NEUROLOGIC: Denies numbness. Denies tingling. Denies weakness. PSYCHIATRIC: Denies anxiety. Denies depression. ENDOCRINE: Denies fatigue. Denies weight change. Denies polydipsia. Denies polyurina. GENITOURINARY: Denies burning, hematuria or urgency with micturation. HEMATOLOGIC: Denies history of anemia. Denies bleeding. Blood pressure 125/82 heart rate 71 afebrile maintaining oxygen saturation on room air GENERAL: This is a 48-year-old female in no apparent distress at the time of my examination. HEENT: Head is atraumatic, normocephalic. Pupils are equal, round. Sclerae anicteric. Conjunctivae are clear. Mucous membranes of the mouth are moist. Neck is supple. There is no jugular venous distention. No carotid bruit is heard. LUNGS: Clear to auscultation no wheezes, rales or rhonchi. No chest wall tenderness is noted on palpation or with deep breathing. HEART: Regular rate and rhythm without murmurs, rubs or gallops. S1 and S2 heard. ABDOMEN: Soft, nontender. Bowel sounds are heard. No organomegaly noted. EXTREMITIES: No evidence of peripheral edema and no calf tenderness noted. VASCULAR: Radial and dorsalis pedis pulses palpated, no evidence of clubbing. NEUROLOGIC: Patient is awake, alert and oriented x3. ASSESSMENT Chest pain, atypical for angina. Leukocytosis, mild Hypertension Dyslipidemia COPD/asthma Chronic nicotine dependence PLAN Continue to obtain serial cardiac enzymes to rule out an acute coronary event. If enzymes are unremarkable heparin infusion can be discontinued. Obtain 2-D echocardiogram and Doppler study to assess cardiac structure and function. If enzymes are negative we will proceed with stress echocardiogram morning, if abnormal we will consider coronary angiography. Smoking cessation highly recommended. Thank you kindly for this consultation, further recommendations to follow based upon clinical course. Nurse Practitioner note has been reviewed, I agree with a documented findings and plan of care. Patient was seen and examined. Past Medical History Past Medical History: Asthma, COPD, Hyperlipidemia, Pneumonia Additional Past Medical History / Comment(s): Bronchitis History of Any Multi-Drug Resistant Organisms: None Reported Past Surgical History: Cholecystectomy, Tonsillectomy, Tubal Ligation Past Anesthesia/Blood Transfusion Reactions: No Reported Reaction Past Psychological History: No Psychological Hx Reported Smoking Status: Current every day smoker Past Alcohol Use History: Occasional Past Drug Use History: None Reported - Past Family History Father Family Medical History: Hypertension Mother Family Medical History: Cancer Additional Family Medical History / Comment(s): Lung Medications and Allergies Home Medications Medication Instructions Recorded Confirmed Type Atorvastatin [Lipitor] 80 mg PO HS 11/09/18 11/09/18 History Lisinopril [Zestril] 2.5 mg PO DAILY 11/09/18 11/09/18 History Allergies Allergy/AdvReac Type Severity Reaction Status Date / Time No Known Allergies Allergy Verified 11/09/18 09:58 Physical Exam Vitals: Vital Signs Temp Pulse Pulse Resp BP BP Pulse Ox 11/09/18 12:03 97.5 F L 71 16 125/82 99 11/09/18 12:00 71 16 11/09/18 11:50 98.0 F 76 12 136/83 98 11/09/18 11:40 74 18 136/83 97 11/09/18 11:30 69 17 136/91 98 11/09/18 11:20 74 19 136/91 97 11/09/18 11:10 77 16 136/91 96 11/09/18 11:00 76 19 142/85 96 11/09/18 10:50 77 17 142/85 97 11/09/18 10:40 74 12 142/85 97 11/09/18 10:30 143/93 11/09/18 10:20 81 16 143/93 98 11/09/18 10:10 86 16 143/93 97 11/09/18 10:00 84 15 149/88 98 11/09/18 09:55 82 18 97 11/09/18 09:39 98.5 F 90 18 156/98 97 Intake and Output 11/08/18 11/09/18 11/09/18 22:59 06:59 14:59 Other: Voiding Method Toilet Weight 70.307 kg Results 11/09/18 10:09 11/09/18 10:09 Cardiac Enzymes 11/09/18 11/09/18 Range/Units 10:09 10:09 AST 37 H (14-36) U/L Troponin I <0.012 (0.000-0.034) ng/mL Coagulation 11/09/18 Range/Units 10:09 PT 9.4 (9.0-12.0) sec APTT 20.0 L (22.0-30.0) sec CBC 11/09/18 Range/Units 10:09 WBC 10.8 H (3.8-10.6) k/uL RBC 4.80 (3.80-5.40) m/uL Hgb 14.1 (11.4-16.0) gm/dL Hct 43.6 (34.0-46.0) % Plt Count 269 (150-450) k/uL Comprehensive Metabolic Panel 11/09/18 Range/Units 10:09 Sodium 138 (137-145) mmol/L Potassium 4.9 (3.5-5.1) mmol/L Chloride 107 (98-107) mmol/L Carbon Dioxide 20 L (22-30) mmol/L BUN 15 (7-17) mg/dL Creatinine 0.50 L (0.52-1.04) mg/dL Glucose 125 H (74-99) mg/dL Calcium 9.7 (8.4-10.2) mg/dL AST 37 H (14-36) U/L ALT 37 (9-52) U/L Alkaline Phosphatase 127 H (38-126) U/L Total Protein 8.4 H (6.3-8.2) g/dL Albumin 4.7 (3.5-5.0) g/dL Current Medications Generic Name Dose Route Start Last Admin Trade Name Freq PRN Reason Stop Dose Admin Aspirin 81 mg 11/10/18 09:00 Aspirin PO DAILY [facility] Atorvastatin Calcium 80 mg 11/09/18 21:00 Lipitor PO HS [facility] Heparin Sodium/Sodium Chloride 250 mls @ 8.437 mls/hr 11/09/18 11:45 11/09/18 11:58 25,000 unit/ Sodium Chloride IV 12 units/kg/hr .Q24H [facility] 8.437 mls/hr Administration Protocol 12 UNITS/KG/HR Sodium Chloride 1,000 mls @ 20 mls/hr 11/09/18 11:45 Saline 0.9% IV .Q24H [facility] Insulin Aspart 0 unit 11/09/18 17:30 Novolog SQ ACHS [facility] Protocol Lisinopril 2.5 mg 11/10/18 09:00 Zestril PO DAILY [facility] Nitroglycerin 1 inch 11/09/18 12:00 11/09/18 13:18 Nitro-Bid Oint TOPICAL Not Given Q6HR [facility] Nitroglycerin 0.4 mg 11/09/18 11:34 Nitrostat SUBLINGUAL Q5M PRN Chest Pain Pantoprazole Sodium 40 mg 11/09/18 12:45 Protonix PO AC-BRKFST HODAN Intake and Output 11/08/18 11/09/18 11/09/18 22:59 06:59 14:59 Other: Voiding Method Toilet Weight 70.307 kg Patient Weight 11/10/18 06:59 Weight 70.307 kg 11/09/18 10:09 11/09/18 10:09
[2018-11-09] MEDS: SODIUM CHLORIDE 0.9% 1,000 ML IV SCH (15:58)
[2018-11-09] MEDS: PANTOPRAZOLE 40 MG TABLET PO SCH (15:58)
[2018-11-09 16:44] LABS: Glucose,Whole Blood 147 mg/dL (75-99)
[2018-11-09] MEDS: INSULIN ASPART (NovoLOG) 100 UNIT/ML VIAL SQ SCH ×2 (17:17→19:52)
[2018-11-09] MEDS: SYMBICORT 80-4.5 MCG INHALER INHALATION SCH (18:54)
[2018-11-09 19:33] LABS: Glucose,Whole Blood 149 mg/dL (75-99)
[2018-11-09] MEDS ORDERED: IPRATROPIUM 0.5 MG/2.5 ML NEBU INHALATION SCH (20:00)
[2018-11-09] MEDS ORDERED: ATORVASTATIN 80 MG TAB PO SCH (21:00)
[2018-11-10] MEDS: NITROGLYCERIN OINT 1 INCH/GM PACKET TOPICAL SCH ×2 (01:09→04:45)
[2018-11-10 06:47] LABS: Glucose,Whole Blood 156 mg/dL (75-99)
[2018-11-10] MEDS: SYMBICORT 80-4.5 MCG INHALER INHALATION SCH (07:36)
[2018-11-10] MEDS: INSULIN ASPART (NovoLOG) 100 UNIT/ML VIAL SQ SCH ×2 (07:37→12:36)
[2018-11-10] MEDS ORDERED: ASPIRIN 81 MG PO SCH (09:00)
[2018-11-10] MEDS ORDERED: LISINOPRIL 2.5 MG TAB PO SCH (09:00)
[2018-11-10] MEDS ORDERED: ASPIRIN 325 MG TAB PO SCH (09:00)
[2018-11-10] MEDS: PANTOPRAZOLE 40 MG TABLET PO SCH (10:07)
[2018-11-10 10:11] LABS: Basophils # (A) 0.1 k/uL (0-0.2); Basophils % (A) 1 %; Eosinophils # (A) 0.4 k/uL (0-0.7); Eosinophils % (A) 4 %; Lymphocytes # (A) 3.2 k/uL (1.0-4.8); Lymphocytes % (A) 34 %; MCHC 31.2 g/dL (31.0-37.0); Mean Platelet Volume 7.3; Monocytes # (A) 0.4 k/uL (0-1.0); Monocytes % (A) 4 %; Neutrophils # (A) 5.3 k/uL (1.3-7.7); Neutrophils % (A) 55 %; Platelet Count 311 k/uL (150-450); RBC 4.84 m/uL (3.80-5.40); RDW 14.8 % (11.5-15.5); WBC 9.6 k/uL (3.8-10.6)
[2018-11-10] MEDS ORDERED: ACETAMINOPHEN TAB 325 MG TAB PO PRN (10:13)
--- NOTE | 2018-11-10 10:14 | ECHOF ---
Referral Reason: MEASUREMENTS -------- HEIGHT: 162.6 cm WEIGHT: 70.3 kg BP: IVSd: 0.9 cm (0.6 - 1.1) LVIDd: 3.2 cm (3.9 - 5.3) LVPWd: 0.9 cm (0.6 - 1.1) IVSs: 1.2 cm LVIDs: 2.1 cm LVPWs: 1.3 cm Ao Diam: 2.9 cm (2.0 - 3.7) AV Cusp: 1.9 cm (1.5 - 2.6) LA Diam: 3.3 cm (2.7 - 3.8) MV EXCURSION: 13.883 mm (> 18.000) MV EF SLOPE: 119 mm/s (70 - 150) MV E Valdez: 0.99 m/s MV DecT: 237 ms MV A Valdez: 0.79 m/s MV E/A Ratio: 1.25 FINDINGS -------- Sinus rhythm. This was a technically good study. LV size, wall thickness and systolic function are normal, with an EF greater than 55%. The right ventricle is normal in size. The left atrium is normal in size. The right atrial size is normal. The aortic valve is trileaflet, and appears structurally normal. No aortic stenosis or regurgitation. The mitral valve is normal. There is trace to mild mitral regurgitation. The tricuspid valve appears structurally normal. No regurgitation noted Right ventricular systoli c pressure is normal at < 35 mmHg. There is no evidence of pulmonary hypertension. There is no pulmonic regurgitation present. There is no pericardial effusion. Ivan Sosa [facility], RVT CONCLUSIONS -------- 1. Sinus rhythm. 2. This was a technically good study. 3. LV size, wall thickness and systolic function are normal, with an EF greater than 55%. 4. The left atrium is normal in size. 5. The aortic valve is trileaflet, and appears structurally normal. No aortic stenosis or regurgitati on. 6. There is trace to mild mitral regurgitation. 7. The tricuspid valve appears structurally normal. 8. No regurgitation noted 9. Right ventricular systolic pressure is normal at < 35 mmHg. 10. There is no pulmonic regurgitation present. 11. There is no pericardial effusion. BOLT THREADER: LUCILA Davis RT(N)
[2018-11-10] MEDS ORDERED: NICOTINE 21MG/24HR PATCH TRANSDERM SCH (10:15)
[2018-11-10 10:23] LABS: ALT 35 U/L (9-52); AST 27 U/L (14-36); African American GFR (CKD) >90 (>60 ml/min/1.73 sqM); Albumin 4.6 g/dL (3.5-5.0); Alkaline Phosphatase 124 U/L (38-126); Anion Gap 12 mmol/L; Blood Urea Nitrogen 13 mg/dL (7-17); Calcium 9.8 mg/dL (8.4-10.2); Carbon Dioxide 19 mmol/L (22-30); Chloride 108 mmol/L (98-107); Cholesterol 228 mg/dL (<200); Glucose 131 mg/dL (74-99); HDL Cholesterol 45 mg/dL (40-60); LDL Cholesterol,Calculated 137 mg/dL (0-99); Potassium 4.6 mmol/L (3.5-5.1); Sodium 139 mmol/L (137-145); Total Bilirubin 0.4 mg/dL (0.2-1.3); Triglycerides 228 mg/dL (<150)
--- NOTE | 2018-11-10 10:49 | ECHOS ---
STRESS ECHOCARDIOGRAM DATE OF SERVICE: 11/10/2018 INDICATIONS: Chest pain. MEDICATIONS: BASELINE HEART RATE: 90 BASELINE BLOOD PRESSURE: 110/60 MAXIMUM HEART RATE: 156 MAXIMUM BLOOD PRESSURE: 206/68 85% MPHR: 145 100% MPHR: 170 METS: 10.3 MAXIMUM STAGE REACHED: III TOTAL EXERCISE TIME: 8 minutes and 45 seconds CLINICAL INFORMATION: Baseline rhythm is sinus mechanism, rate of 90, normal axis and intervals. Normal electrocardiogram. Baseline blood pressure 110/60 mmHg. Patient exercised on Logan protocol for 8 minutes 45 seconds reaching a peak rate of 91 beats per minute which is equal to 85% maximum predicted heart rate. Peak blood pressure 206/68 mmHg. Test was terminated secondary to fatigue. There was no chest pain. Electrocardiograph monitoring revealed no evidence of diagnostic ischemic ST deviation. Baseline echocardiogram revealed normal wall thickening and motion. At peak exercise there was normal wall motion augmentation with no hypokinesis or dyskinesis. CONCLUSION: 1. Average exercise tolerance with normal electrocardiograph response to exercise. 2. Normal stress echocardiogram with no evidence of stress induced ischemia. MMODL / IJN: [id number] /
--- NOTE | 2018-11-10 11:28 | P.PN ---
Subjective This is a pleasant 48 old female past medical history significant for hypertension, dyslipidemia, asthma, COPD and chronic nicotine dependence. She denies prior history of coronary artery disease. She has seen Dr. Mcfadden in the office in 2017. Patient was seen and examined resting comfortably in bed. She denies any further symptoms of chest discomfort. She states she has been up and walking frequently. Cardiac enzymes negative 3. Blood pressure 106/73 heart rate 75 afebrile maintaining oxygen saturation on room air. Echocardiogram obtained reveals preserved LV systolic function with ejection fraction 55% with no evidence of valvular disease noted. Stress echocardiogram obtained is negative for stress-induced ischemia. GENERAL: This is a 48-year-old female in no apparent distress at the time of my examination. HEENT: Head is atraumatic, normocephalic. Pupils are equal, round. Sclerae anicteric. Conjunctivae are clear. Mucous membranes of the mouth are moist. Neck is supple. There is no jugular venous distention. No carotid bruit is heard. LUNGS: Clear to auscultation no wheezes, rales or rhonchi. No chest wall tenderness is noted on palpation or with deep breathing. HEART: Regular rate and rhythm without murmurs, rubs or gallops. S1 and S2 heard. EXTREMITIES: No evidence of peripheral edema and no calf tenderness noted. ASSESSMENT Chest pain, atypical for angina. An acute coronary event has been ruled out. Leukocytosis, mild Hypertension Dyslipidemia COPD/asthma Chronic nicotine dependence PLAN Stable for discharge from a cardiac perspective. Again discussed smoking cessation as well as medication compliance specifically Lipitor along with lifestyle modifications in the form of diet and exercise. Follow-up in the office with Dr. Mcfadden in 2 weeks. Nurse Practitioner note has been reviewed, I agree with a documented findings and plan of care. Patient was seen and examined. Objective - Vital Signs Vital signs: Vital Signs Temp 97.6 F 11/10/18 08:00 Pulse 75 11/10/18 08:00 Resp 16 11/10/18 08:00 BP 106/73 11/10/18 08:00 Pulse Ox 99 11/10/18 08:00 Intake & Output 11/09/18 11/10/18 11/10/18 18:59 06:59 18:59 Weight 70.307 kg Other: Voiding Method Toilet Toilet Toilet # Voids 1 - Labs CBC & Chem 7: 11/10/18 09:40 11/10/18 09:40 Labs: Abnormal Lab Results - Last 24 Hours (Table) 11/09/18 11/09/18 11/09/18 Range/Units 16:36 16:58 19:32 APTT 51.5 H (22.0-30.0) sec Chloride (98-107) mmol/L Carbon Dioxide (22-30) mmol/L Glucose (74-99) mg/dL POC Glucose (mg/dL) 147 H 149 H (75-99) mg/dL Triglycerides (<150) mg/dL Cholesterol (<200) mg/dL LDL Cholesterol, Calc (0-99) mg/dL 11/10/18 11/10/18 Range/Units 06:46 09:40 APTT (22.0-30.0) sec Chloride 108 H (98-107) mmol/L Carbon Dioxide 19 L (22-30) mmol/L Glucose 131 H (74-99) mg/dL POC Glucose (mg/dL) 156 H (75-99) mg/dL Triglycerides 228 H (<150) mg/dL Cholesterol 228 H (<200) mg/dL LDL Cholesterol, Calc 137 H (0-99) mg/dL
[2018-11-10 11:40] LABS: Glucose,Whole Blood 178 mg/dL (75-99)
[2018-11-10 12:09] VITALS: BP 115/78; PULSE 92; RESP 18; TEMP 97.9
[2018-11-10] MEDS: SODIUM CHLORIDE 0.9% 1,000 ML IV SCH (12:37)
--- NOTE | 2018-11-10 13:57 | P.DS ---
Providers Date of admission: 11/09/18 11:34 Expected date of discharge: 11/10/18 Attending physician: Ivy Resendez Consults: 11/09/18 11:34 Consult Physician Urgent Consulting Provider: Willard Og Consult Reason/Comments: Chest pain, unstable angina Do you want consulting provider notified?: Yes Primary care physician: [facility] Course: Discharge diagnosis 1. Chest pain: Cardiac workup in progress. First troponin is negative. Continue to monitor cardiac enzymes every 6 hours 2 more sets. EKG normal sinus rhythm. Chest x-ray negative. D-dimer 0.20. 2-D echo completed showing EF greater than 55%. Stress echocardiogram completed showing average exercise tolerance a normal electrocardiographic exercise. Normal stress echocardiogram with no evidence of stress-induced ischemia. Patient has been cleared for discharge from cardiology standpoint. Follow up with cardiology service in 2 weeks 2. Hyperlipidemia: Continue statin. Check lipid panel. 3. Essential hypertension: Continue lisinopril 4. Borderline diabetic: Check hemoglobin A1c and Accu-Cheks every before meals and at bedtime 5. COPD: Resume patient's home inhalers. Patient's will be bringing in the home med list 6. Nicotine dependence: Discussed smoking cessation for greater than 3 minutes. Patient will be DC'd on nicotine patch Hospital course This is a 48-year-old female, patient of [facility]. She has a known past medical history of hypertension, hyperlipidemia, nicotine dependence, borderline diabetic and COPD. Patient presents to the emergency room with complaints of chest pain. 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 The pain was in the center of her chest radiating to the back and also having jaw pain. She took to full aspirin that did help alleviate the symptoms. Afterwards she was complaining of nausea. She reports being pale as well. She denies any shortness of breath and any diaphoresis. She had similar symptoms 2 years ago and at that time it had a cardiac workup [place] was ruled out stress test was negative. Patient has been admitted to the observation floor. EKG normal sinus rhythm first troponin is negative d-dimer 0.20 chest x-rays negative. White count 10.8 lipase is normal. Slight elevation of AST of 37. Patient has been placed on IV heparin and cardiology was consulted. Patient denies any fever or chills, vomiting, bowel movement changes or urinary symptoms. On 11/10/2018 patient underwent stress test. Patient has been cleared for discharge from cardiology standpoint. Stress test negative troponins negative 3. This time patient denies any chest pain or shortness of breath. Patient denies nausea vomiting or diarrhea. Patient denies any urinary burning or frequency. Patient to follow-up with PCP and cardiology services for further management I performed an examination of the patient and discussed their management with the Nurse Practitioner. I have reviewed the Nurse Practitioner's notes and agree with the documented findings and plan of care Patient Condition at Discharge: Stable Plan - Discharge Summary Discharge Rx Participant: No New Discharge Prescriptions: New Aspirin 81 mg PO DAILY 30 Days #30 chew Nicotine 21Mg/24Hr Patch [Habitrol] 1 patch TRANSDERM DAILY 30 Days #30 patch Continue Lisinopril [Zestril] 2.5 mg PO DAILY Atorvastatin [Lipitor] 80 mg PO HS Fluticasone/Vilanterol [Breo Ellipta 100-25 Mcg Inhaler] 1 inhalation PO RT- HS Tiotropium Abernathy [Spiriva Respimat] 2.5 mcg PO RT-HS Discharge Medication List Atorvastatin [Lipitor] 80 mg PO HS 11/09/18 [History] Fluticasone/Vilanterol [Breo Ellipta 100-25 Mcg Inhaler] 1 inhalation PO RT-HS 11/09/18 [History] Lisinopril [Zestril] 2.5 mg PO DAILY 11/09/18 [History] Tiotropium Abernathy [Spiriva Respimat] 2.5 mcg PO RT-HS 11/09/18 [History] Aspirin 81 mg PO DAILY 30 Days #30 chew 11/10/18 [Rx] Nicotine 21Mg/24Hr Patch [Habitrol] 1 patch TRANSDERM DAILY 30 Days #30 patch 11/10/18 [Rx] Follow up Appointment(s)/Referral(s): Sanju Mcfadden MD [STAFF PHYSICIAN] - 11/22/18 8:30 am Masha Phipps DO [Primary Care Provider] - 1-2 days Activity/Diet/Wound Care/Special Instructions: Activity as tolerated Diet heart healthy Discharge Disposition: HOME SELF-CARE
[2018-11-10 17:57] LABS: Hemoglobin A1C 6.9 % (4.0-6.0)
== END 2018-11-10 14:25 | disposition home or self-care (01) ==
LOC: EC 09:35 → 1SOBS 11:34
PROVIDERS: ADMIT Internal Medicine; ATTEND Internal Medicine
DX: R07.89 Other chest pain (principal); E78.5 Hyperlipidemia, unspecified; E78.00 Pure hypercholesterolemia, unspecified; I10 Essential (primary) hypertension; D72.829 Elevated white blood cell count, unspecified; J44.9 Chronic obstructive pulmonary disease, unspecified; F17.200 Nicotine dependence, unspecified, uncomplicated; R73.03 Prediabetes; Z79.899 Other long term (current) drug therapy; R11.0 Nausea; R68.84 Jaw pain; Z87.01 Personal history of pneumonia (recurrent); Z87.09 Personal history of other diseases of the respiratory system; Z90.49 Acquired absence of other specified parts of digestive tract; Z82.49 Family history of ischemic heart disease and other diseases of the circulatory system; Z80.1 Family history of malignant neoplasm of trachea, bronchus and lung
CPT/HCPCS: 36415; 71046; 80053; 80061; 82550; 83036; 83690; 83735; 83880; 84484; 85025; 85379; 85610; 85730; 93005; 93306; 93351; 94640; 96365; 96366; 96376; 99285

== ENCOUNTER → 2022-12-16 | Outpatient (CLI) | payer OTHER ==
--- NOTE | 2022-12-17 20:20 | MM ---
Reason for Exam: Screening (asymptomatic). Last mammogram was performed 4 year(s) and 3 month(s) ago. Patient History: Menarche at age 10. First Full-Term at age 26. Postmenopausal. Patient used Hormonal Contraceptives for 3 years. Risk Values: Grace 5 year model risk: 1.3%. NCI Lifetime model risk: 9.3%. Prior Study Comparison: 08/23/2012 Bilateral Screening Mammogram, [facility]. 09/24/2016 Bilateral Screening Mammogram, [facility]. 09/10/2018 Bilateral Screening Mammogram, [facility]. Tissue Density: There are scattered fibroglandular densities. Findings: Analyzed By CAD. There is no suspicious group of microcalcifications or new suspicious mass in either breast. Overall Assessment: Negative, BI-RAD 1 Management: Screening Mammogram of both breasts in 1 year. . Patient should continue monthly self-breast exams. A clinical breast exam by your physician is recommended on an annual basis. This exam should not preclude additional follow-up of suspicious palpable abnormalities. Note on Grace scores and lifetime risk: 1. A Grace score greater than 3% is considered moderate risk. If this is the case, consider specialist referral to assess eligibility for a risk reducing agent. 2. If overall lifetime risk for the development of breast cancer is 20% or higher, the patient may qualify for future screening with alternating mammogram and breast MRI. Electronically signed and approved by: Naomy Worthington M.D. Radiologist
== END | disposition home or self-care (01) ==
LOC: RADMAMWWP 09:38
PROVIDERS: ATTEND Family Medicine
DX: Z12.31 Encounter for screening mammogram for malignant neoplasm of breast (principal); Z78.0 Asymptomatic menopausal state
CPT/HCPCS: 77063; 77067

== ENCOUNTER → 2023-01-19 | Outpatient (CLI) | payer OTHER ==
[2023-01-19 15:42] LABS: Basophils # (A) 0.06 X 10*3/uL (0.00-0.10); Basophils % (A) 0.5 %; Eosinophils # (A) 0.26 X 10*3/uL (0.04-0.35); HGB 14.7 d/dL (12.0-15.0); Lymphocytes # (A) 4.19 X 10*3/uL (0.90-5.00); Lymphocytes % (A) 32.6 %; MCH 30.5 pg (27.0-32.0); MCHC 33.4 d/dL (32.0-37.0); MCV 91.3 FL (80.0-97.0); Monocytes # (A) 0.67 X 10*3/uL (0.20-1.00); Monocytes % (A) 5.2 %; NRBC Per 100 WBC 0 X 10*3/uL (0.00-0.01); Neutrophils # (A) 7.64 X 10*3/uL (1.80-7.70); Neutrophils % (A) 59.3 %; Platelet Count 155 X 10*3/uL (140-440); RBC 4.82 X 10*6/uL (4.10-5.20); WBC 12.87 X 10*3/uL (4.50-10.00)
[2023-01-19 15:58] LABS: Blood Urea Nitrogen 13.7 mg/dL (9.0-27.0); Chloride 104 mmol/L (96-109); Glucose 122 mg/dL (70-110); Potassium 4.3 mmol/L (3.5-5.5); Sodium 137 mmol/L (135-145)
== END | disposition home or self-care (01) ==
LOC: LABWHC1 10:49
PROVIDERS: ATTEND Obstetrics & Gynecology
DX: Z01.812 Encounter for preprocedural laboratory examination (principal); I49.8 Other specified cardiac arrhythmias; N81.11 Cystocele, midline
CPT/HCPCS: 36415; 80051; 82565; 82947; 84520; 85025; 87086; 93005

== ENCOUNTER → 2023-09-22 | Outpatient (CLI) | payer OTHER ==
--- NOTE | 2023-09-22 11:38 | CTL ---
EXAMINATION TYPE: CT Low Dose Lung DATE OF EXAM: 09/22/2023 11:24 AM CLINICAL INDICATION:Female, 53 years old with history of Z12.2 SCREENING LUNG CA F17.210 CURRENT SMOK ER; Personal hx nicotine use, current smoker, 1 pk per day x40 years, c/o chronic cough. , history of tobacco use. COMPARISON: None. TECHNIQUE: Multiple axial non-contrast scans were obtained from approximately the lung apices through the upper abdomen. Coronal and sagittal reformatted images were obtained. Low dose technique was uti lized. CT DLP: 94.40 mGycm, Automated exposure control for dose reduction was used. CT Contrast: Contrast used: None Oral contrast used: None FINDINGS: ======== Lack of intravenous contrast and low dose technique limits the evaluation of the vascular and soft ti ssue structures. LUNGS: No evidence of pulmonary fibrosis. No evidence of focal consolidation, pneumothorax or pleural effusion. Mild emphysema changes are present. Nodules: RUL: None. RML: None. RLL: None. ALESSANDRA: None. LLL: None. AIRWAY: Patent and unremarkable. HEART: Size within normal limits. MEDIASTINUM: No gross evidence of adenopathy. VASCULATURE: No aortic aneurysm. MUSCULOSKELETAL: Mild disc degeneration changes are present throughout the thoracolumbar spine. SOFT TISSUES/LYMPH NODES: Unremarkable. LOWER NECK: No significant findings. UPPER ABDOMEN: The gallbladder is surgically absent. IMPRESSION: 1. No pulmonary nodules. 2. Mild emphysema. CT LUNG RAD AND CT CHEST RECOMMENDATION: Lung-Rad 1 Negative: Continue annual screening with LDCT in 12 months. S Modifier (other clinically significant findings): None Recommend smoking cessation (if current smoker), or continuation of smoking cessation (if prior smoke r). Annual screening for lung cancer with low-dose computed tomography is recommended in adults ages 55 to 77 years who have a 30 pack-year smoking history and currently smoke or have quit within the pa st 15 years. Screening should be discontinued once a person has not smoked for 15 years or develops a health problem that substantially limits life expectancy or the ability or willingness to have curat gibson lung surgery. Lung rads 2021 [email or web address]
== END | disposition home or self-care (01) ==
LOC: RADCTMAIN 10:42
PROVIDERS: ATTEND Family Medicine
DX: Z12.2 Encounter for screening for malignant neoplasm of respiratory organs (principal); J43.9 Emphysema, unspecified; F17.210 Nicotine dependence, cigarettes, uncomplicated
CPT/HCPCS: 71271

== ENCOUNTER → 2023-12-30 | Outpatient (CLI) | payer OTHER ==
--- NOTE | 2024-01-21 15:16 | MM ---
Reason for Exam: Screening (asymptomatic). Last mammogram was performed 1 year(s) and 1 month(s) ago. Patient History: Menarche at age 10. First Full-Term at age 26. Postmenopausal. Patient used Hormonal Contraceptives for 3 years. Risk Values: Grace 5 year model risk: 1.3%. NCI Lifetime model risk: 9.1%. Prior Study Comparison: 09/24/2016 Bilateral Screening Mammogram, [facility]. 09/10/2018 Bilateral Screening Mammogram, [facility]. 12/16/2022 Bilateral MG 3D screening mammo w/cad, [facility]. Tissue Density: The breasts are almost entirely fatty. Findings: Analyzed By CAD. Right breast: There is no suspicious group of microcalcifications or new suspicious mass. Left breast: There is no suspicious group of microcalcifications or new suspicious mass. Overall Assessment: Negative, BI-RAD 1 Management: Screening Mammogram of both breasts in [address] [facility] will attempt to contact patient to return for supplemental views and ultrasound if indicated. Patient should continue monthly self-breast exams. A clinical breast exam by your physician is recommended on an annual basis. This exam should not preclude additional follow-up of suspicious palpable abnormalities. Note on Grace scores and lifetime risk: 1. A Grace score greater than 3% is considered moderate risk. If this is the case, consider specialist referral to assess eligibility for a risk reducing agent. 2. If overall lifetime risk for the development of breast cancer is 20% or higher, the patient may qualify for future screening with alternating mammogram and breast MRI. Electronically signed and approved by: Rafael Guan DO
== END | disposition home or self-care (01) ==
LOC: RADMAMWWP 12:00
PROVIDERS: ATTEND Family Medicine
DX: Z12.31 Encounter for screening mammogram for malignant neoplasm of breast
CPT/HCPCS: 77067